=== PATIENT | female | born 1950 | race African-American/Black ===

== ENCOUNTER 2017-10-05 14:17 | Outpatient (CLI) | payer OTHER | END 2017-10-05 14:18 | disposition home or self-care (01) | LOC: BICMAMMO 14:17 | PROVIDERS: ATTEND Family Medicine | DX: M25.552 Pain in left hip (principal); M25.551 Pain in right hip | CPT/HCPCS: 77080 ==

== ENCOUNTER 2017-12-20 08:23 | Outpatient (CLI) | payer OTHER ==
--- NOTE | 2017-12-20 09:49 | MMO ---
BILATERAL SCREENING MAMMOGRAM: Date: 12/20/17 COMPARISON: 12/29/15, 07/07/10. HISTORY: Annual screening exam. This patient's mammogram was interpreted with the assistance of computer-aided detection. FINDINGS: Scattered fibroglandular changes of both breasts are present. There is no dominant mass, suspicious c alcification, or other sign of malignancy. IMPRESSION: BIRADS 1: Negative POS: REY
== END 2017-12-20 08:24 | disposition home or self-care (01) ==
LOC: SCSMAMMO 08:23
PROVIDERS: ATTEND Family Medicine
DX: Z12.31 Encounter for screening mammogram for malignant neoplasm of breast (principal)
CPT/HCPCS: 77067

== ENCOUNTER 2018-01-04 12:59 | Observation (INO) | payer OTHER ==
[2018-01-04] MEDS ORDERED: Oxymetazoline HCl 0.05% ( 15 ML ) ONE ×2 (13:23→13:50)
[2018-01-04 13:29] LABS: Hemoglobin 12.6 g/dL (12.0-16.0)
[2018-01-04 13:48] LABS: BUN (Urea Nitrogen) 17 mg/dL (9.8-20.1); Calc. Creatinine Clearance 0 mL/min (70-130); Calcium 9.7 mg/dL (7.8-10.44); Carbon Dioxide 28 mmol/L (23-31); Estimated GFR-MDRD 79; Glucose 85 mg/dL (80-115)
[2018-01-04] MEDS ORDERED: Lidocaine 1% w/Epinephrine 1:100K 30 ML VIAL ONE (13:49)
[2018-01-04 14:01] LABS: Chloride 106 mmol/L (98-107); Sodium 141 mmol/L (136-145)
[2018-01-04] MEDS ORDERED: Fentanyl 100 MCG/2 ML VIAL ONE ×2 (14:04→15:32)
[2018-01-04 14:24] LABS: Anion Gap 11 mmol/L (10-20)
[2018-01-04] MEDS ORDERED: PROPOFOL 200 MG/20 ML VIAL ONE (15:06)
[2018-01-04] MEDS ORDERED: Lidocaine 1% PF 5 ML VIAL ONE (15:06)
[2018-01-04] MEDS ORDERED: Dexamethasone 20 MG/5 ML VIAL ONE (15:06)
[2018-01-04] MEDS ORDERED: Glycopyrrolate 0.2 MG/ML 5 ML SYRINGE ONE (15:06)
[2018-01-04] MEDS ORDERED: Ondansetron HCl/PF 4 MG/2 ML Vial ONE (15:06)
[2018-01-04] MEDS ORDERED: HYDROcodone/Acetaminophen 7.5/325 mg Tablet PO PRN ×2 (15:08→15:09)
[2018-01-04] MEDS ORDERED: Promethazine HCl 25 MG/ML VIAL SLOW IVP PRN (15:09)
[2018-01-04] MEDS ORDERED: Insulin Regular 300 UNITS/3 ML VIAL SC PRN (15:13)
[2018-01-04] MEDS ORDERED: Dextrose 50% Abboject 50 ML SYRINGE IVP PRN (15:13)
[2018-01-04] MEDS ORDERED: Dextrose 5% in Water 1,000 ML IV PRN (15:13)
[2018-01-04] MEDS ORDERED: Ondansetron HCl/PF 4 MG/2 ML Vial SLOW IVP PRN (15:14)
[2018-01-04] MEDS ORDERED: D5 1/4 NS 1,000 ML IV SCH (15:15)
--- NOTE | 2018-01-04 15:58 | OP ---
PREOPERATIVE DIAGNOSES: Chronic sinusitis, nasal polyposis, left ethan bullosa, hypertrophic inferi or turbinates. PROCEDURES PERFORMED: 1. Bilateral nasal endoscopy with maxillary antrostomy with removal of tissue. 2. Bilateral nasal endoscopy with total ethmoidectomy. 3. Bilateral nasal endoscopy with frontal sinusotomy. 4. Left nasal endoscopy with resection of ethan bullosa 5. Bilateral nasal endoscopy with submucosal resection of inferior turbinates. PROCEDURE IN DETAIL: After consent was obtained, the patient was identified, brought to the operatin g room, and placed on the operating room table in the supine position. Consent was obtained, notifyi ng the patient of the possibility of additional infections, bleeding, brain injury, and eye/orbital i njury. The patient was placed on the operating room table, and general endotracheal anesthesia and intravenous access was obtained. The patient was then positioned, prepped and draped for endoscopic sinus surgery. Nasal preparation included trimming nasal vestibular hairs and spraying in topical Af rin. We then placed Afrin topical solution on nasal pledgets and strategically located them intranas ally. The perinasal mucosa was injected with 1% lidocaine with 1:100,000 epinephrine in the submucop erichondrial plane of the septum, lateral nasal wall, and anterior to the uncinate. The patient was then prepped and draped in a sterile fashion and positioned for endoscopic sinus surgery. (Endoscopic Sinus Surgery) With the 0-degree endoscope, the patient underwent systematic nasal endoscopy. There were no suspici ous internasal masses or lesions identified. We then focused our attention to the osteomeatal comple x region under the middle turbinate. (Ethan Bullosa) The ethan bullosa was identified and entered with a sickle blade. The lateral aspect of the ethan bullosa was meticulously resected while leaving the medial most aspect t o form the new middle turbinate. Attention was made not to violate the mucosa. The straight biting punches and micro-debrider were used to remove shrouds of mucosa and bony debris. (Maxillary Antrostomy) The uncinate was then identified and the extent of the uncinate was appreciated by out-fracturing the uncinate with the ball-tip probe. We then used the sickle blade to disarticulate the uncinate from the lateral nasal wall. This was then removed with straight biting and upbiting punches with the remaining shrouds of mucosa and bony septum removed with the micro-debr ider. The natural os of the maxillary sinus was then identified and enlarged with the maxillary punc hes and back biting forceps. (Total Ethmoidectomy) The anterior face of the ethmoid bulla was entered and with the micro-debrider, dissection continued posteriorly to the ground lamella. The limits of dissection inc luded the insertion of the middle turbinate, medial orbital wall, and base of skull. We similarly id entified the frontal recess and removed shrouds of bone and debris in that region to obtain patency i nto the agger nasi region and frontal recess. We then entered the ground lamella and its anteroinfer ior aspect and proceeded posteriorly, opening the posterior ethmoid air-cell system. Again, the limi ts of dissection included the base of skull and medial orbital wall. (Sphenoidotomy) The anterior face of the sphenoid was identified and entered in its extreme anteroinferior aspect. A sphenoid punch was then used to enlarge the sphenoidotomy and no injury to the optic nerve or internal carotid artery occurred. (Outfracture of the Inferior Turbinates) The inferior turbinates were visualized under endoscopic visualization and outfractured with the elevator. The inferolateral edge of the inferior turbinate was then cauterized along its length with the suction cautery without difficulty. (Outfracture & Cautery of the Inferior Turbinates) The inferior turbinates were visualized with a 0-degree endoscope and outfractured with a Mansfield elevator. The inferior medial aspect was cauterized with the electrocauter y. Hemostasis was obtained . After adequate airway was established, we turned our attention to the contralateral side and used a similar procedure. Again, a Berenice elevator was used to outfracture inf erior turbinates under endoscopic visualization. With a suction cautery, the free inferior medial as pect was cauterized under direct visualization along the length of the inferior turbinate. (Septoplasty) After local anesthesia was infiltrated into the submucoperichondrial plane, a standard Claypool incisi on was made with a #15 blade down to the level of the septal cartilage. The caudal elevator was used to elevate the mucoperichondrium from the underlying cartilage. We then proceeded beyond the bony c artilaginous junction and elevated the bony periosteum as well. Great attention was paid to the spur to prevent rent formation in the septal flap. A transcartilaginous incision was then made, while pre serving an adequate dorsal and caudal cartilaginous strut for tip support. The deformed cartilage wa s removed and disarticulated from the bony cartilaginous junction and maxillary crest. This was plac ed in saline and would later be crushed and returned to the mucoperichondrial envelope. We then elev ated the contralateral periosteum from the bony cartilaginous region and removed the deformed portion s of the bone and bony spurs. The cartilage was then crushed and placed back into the mucoperichondr ial envelope and the mucosa was re-approximated with a quilting stitch composed of rapidly absorbent gut suture. The Claypool incision was also closed with interrupted gut suture. At the completion of the case, Cleary splints were placed and suture secured to the caudal septum. At this point, we then turned our attention to the contralateral side and proceeded with endoscopic sinus surgery. At the completion of the case, Rice keel splints were placed in the ethmoid cavities after the ethmoidectomy. There were no complications. The patient tolerated the procedure well and was discharged to the recovery room in stable condition prior to return to the preoperative Day Stay with ultimate discharge home. Prescriptions for pain medication and antibiotics were provid ed. The patient received intramuscular Depo-Medrol during the case. FINDINGS: Purulence was encountered within the ethan bullosa and entire left maxillary sinus. Larg e accessory ostia were encountered on the right.
[2018-01-04 18:50] VITALS: BMI 29.6
[2018-01-04] MEDS: Metoprolol Tartrate 25 MG TAB PO SCH (20:37)
[2018-01-04] MEDS: Sodium Chloride 0.9% 1,000 ML IV SCH (22:11)
[2018-01-05] MEDS ORDERED: metFORMIN 500 MG TAB PO SCH (08:00)
[2018-01-05] MEDS: Sodium Chloride 0.9% 1,000 ML IV SCH (08:31)
[2018-01-05] MEDS: Metoprolol Tartrate 25 MG TAB PO SCH (08:32)
[2018-01-05] MEDS ORDERED: cefTRIAXone\\ROCEPHIN 1 GM in Sodium Chloride 0.9% 100 ML IVPB SCH (09:00)
[2018-01-05] MEDS ORDERED: Atorvastatin Calcium 20 MG TAB PO SCH (09:00)
[2018-01-05] MEDS ORDERED: Furosemide 20 MG TAB PO SCH (09:00)
[2018-01-05] MEDS ORDERED: Losartan 25 MG TAB PO SCH (09:00)
[2018-01-05] MEDS ORDERED: Lisinopril 10 MG TAB PO SCH (09:00)
[2018-01-05 13:18] VITALS: BP 117/64; TEMP 97.9
[2018-01-11] MEDS ORDERED: ALENDRONATE 35 MG PO SCH (09:00)
== END 2018-01-05 14:00 ==
LOC: SDC 12:59 → SURG A 15:07
PROVIDERS: ADMIT Specialist; ATTEND Specialist
PROC: 09TV8ZZ Resection of Left Ethmoid Sinus, Via Natural or Artificial Opening Endoscopic (ICD-10-PCS; principal; 2018-01-04)
PROC: 09TU8ZZ Resection of Right Ethmoid Sinus, Via Natural or Artificial Opening Endoscopic (ICD-10-PCS; 2018-01-04)
PROC: 09SM0ZZ Reposition Nasal Septum, Open Approach (ICD-10-PCS; 2018-01-04)
PROC: 095L8ZZ Destruction of Nasal Turbinate, Via Natural or Artificial Opening Endoscopic (ICD-10-PCS; 2018-01-04)
PROC: 099R8ZZ Drainage of Left Maxillary Sinus, Via Natural or Artificial Opening Endoscopic (ICD-10-PCS; 2018-01-04)
PROC: 099Q8ZZ Drainage of Right Maxillary Sinus, Via Natural or Artificial Opening Endoscopic (ICD-10-PCS; 2018-01-04)
PROC: 09BT8ZZ Excision of Left Frontal Sinus, Via Natural or Artificial Opening Endoscopic (ICD-10-PCS; 2018-01-04)
PROC: 09BS8ZZ Excision of Right Frontal Sinus, Via Natural or Artificial Opening Endoscopic (ICD-10-PCS; 2018-01-04)
DX: J32.8 Other chronic sinusitis (principal); J34.3 Hypertrophy of nasal turbinates; J34.2 Deviated nasal septum; J34.89 Other specified disorders of nose and nasal sinuses; J33.9 Nasal polyp, unspecified; I10 Essential (primary) hypertension; E11.9 Type 2 diabetes mellitus without complications; E78.5 Hyperlipidemia, unspecified; E66.9 Obesity, unspecified; Z88.0 Allergy status to penicillin; Z88.2 Allergy status to sulfonamides; Z79.899 Other long term (current) drug therapy; Z79.84 Long term (current) use of oral hypoglycemic drugs
CPT/HCPCS: 36415; 36416; 80048; 85014; 85018; 87070; 87205; 93005; 93010; 96361; 96365; 96374; G0378; J0696; J1100; J1815; J2001; J2405; J2704; J3010; J7050